=== PATIENT | female | born 1985 | race Caucasian/White ===

== ENCOUNTER 2018-08-01 12:13 | Outpatient (CLI) | payer OTHER ==
[2018-08-01 12:50] LABS: CREATININE 0.7 mg/dL (0.6-1.3)
[2018-08-01] MEDS ORDERED: GADODIAMIDE 5 MMOL/10 ML VIAL IJ ONE (16:34)
== END 2018-08-01 23:59 | disposition home or self-care (01) ==
LOC: MRI 12:13
PROVIDERS: ATTEND Surgery
DX: J32.0 Chronic maxillary sinusitis (principal); R47.81 Slurred speech; R51 Headache
CPT/HCPCS: 36415; 70553; 82565; 84520; A9579

== ENCOUNTER 2019-06-16 19:51 | Emergency (ER) | payer OTHER ==
[~2019-06-16] VITALS: Ht 162.6 cm; Wt 63.5 kg
[2019-06-16 19:55] VITALS: BP 102/66
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
[2019-06-16] MEDS ORDERED: IBUPROFEN 600 MG TABLET PO ONE ×2 (20:36→21:00)
--- NOTE | 2019-06-16 20:44 | NUR ---
PT TAKEN TO RADIOLOGY VIA [facility]
--- NOTE | 2019-06-16 21:03 | NUR ---
PT RETURNED FROM RADIOLOGY FROM [facility]. PT TOLERATED WELL.
--- NOTE | 2019-06-16 21:29 | NUR ---
Patient discharged to home in stable condition. Written and verbal after care instructions given. Patient verbalizes understanding of instruction.
== END 2019-06-16 21:43 | disposition home or self-care (01) ==
LOC: ER 19:52
DX: S20.212A Contusion of left front wall of thorax, initial encounter (principal); R51 Headache; M79.7 Fibromyalgia; V49.49XA Driver injured in collision with other motor vehicles in traffic accident, initial encounter; Y93.89 Activity, other specified; Y92.488 Other paved roadways as the place of occurrence of the external cause; Y99.8 Other external cause status
CPT/HCPCS: 70450-TC; 71100-TC

== ENCOUNTER 2019-08-22 05:06 | Emergency (ER) | payer OTHER ==
[~2019-08-22] VITALS: Ht 162.6 cm; Wt 62.6 kg
--- NOTE | 2019-08-22 05:32 | NUR ---
PATIENT CAME TO ER BED 10 C/O SHORTNESS OF BREATH. PATIENT STATES THAT "IT IS DIFFICULT FOR ME TO TAKE A FULL BREATH OF AIR". AAOX.4 BREATHING EVENLY ON ROOM AIR. CONNECTED TO MONITOR.
--- NOTE | 2019-08-22 05:53 | NUR ---
BLOOD DRAWN AND SENT TO THE LAB
[2019-08-22 05:57] LABS: BASOPHILS # (AUTO) 0.1 /CMM (0.0-0.2); BASOPHILS % (AUTO) 0.9 % (0.0-2.0); HEMATOCRIT 44 % (33-45); HEMOGLOBIN 14.6 g/dL (11.5-14.8); LYMPHOCYTES # (AUTO) 2.4 /CMM (0.8-4.8); LYMPHOCYTES % (AUTO) 40.9 % (20.0-44.0); MEAN CORPUSCULAR HGB CONC 33 g/dl (31.0-36.0); MEAN CORPUSCULAR VOLUME 93 fL (82-100); MONOCYTES # (AUTO) 0.5 /CMM (0.1-1.30); NEUTROPHILS # (AUTO) 2.9 /CMM (1.8-8.9); NEUTROPHILS % (AUTO) 48.2 % (43.0-81.0); PLATELET COUNT (AUTO) 211 /CMM (150-450); RED BLOOD CELL COUNT(AUTO) 4.68 MIL/uL (4.0-5.2); WHITE BLOOD COUNT (AUTO) 5.9 K/uL (4.3-11.0)
[2019-08-22 06:05] LABS: CALCIUM, SERUM 9.4 mg/dL (8.5-10.1); CARBON DIOXIDE 23 mmol/L (21-32); CHLORIDE 103 mmol/L (98-107); CREATININE 0.8 mg/dL (0.6-1.3); GLUCOSE 95 mg/dL (74-106); POTASSIUM 3.6 mmol/L (3.5-5.1); SODIUM SERUM 139 mmol/L (136-145); UREA NITROGEN, BLOOD 14 mg/dL (7-18)
[2019-08-22 06:18] LABS: B-TYPE NATRIURETIC PEPTIDE 78 PG/ML (0-125)
[2019-08-22 07:18] VITALS: BP 112/77
--- NOTE | 2019-08-22 07:18 | NUR ---
IV removed. Catheter intact and site benign. Pressure and 4x4 applied to site. No bleeding noted. Patient discharged to home in stable condition. Written and verbal after care instructions given. Patient verbalizes understanding of instruction.
== END 2019-08-22 07:19 | disposition home or self-care (01) ==
LOC: ER 05:10
DX: J45.909 Unspecified asthma, uncomplicated (principal); J06.9 Acute upper respiratory infection, unspecified; Z88.1 Allergy status to other antibiotic agents; Z20.828 Contact with and (suspected) exposure to other viral communicable diseases
CPT/HCPCS: 36415; 71045-TC; 80048-TC; 83880; 84484-TC; 85025-TC; U0002

== ENCOUNTER 2019-08-29 19:12 | Emergency (ER) | payer OTHER ==
[~2019-08-29] VITALS: Ht 162.6 cm; Wt 63.5 kg
--- NOTE | 2019-08-29 19:38 | NUR ---
weaknes x 1 week with cough x 2 days. REPORTS SHE WAS TESTED FOR COVID PREVIOUSLY BUT THAT WE "LOST THE TEST". DENIES PAIN, SOB. RR EVEN AND UNLABORED ON RA. TO ER BED 5, AWAITING MD ORDERS.
--- NOTE | 2019-08-29 19:49 | NUR ---
XRAY AT BEDSIDE
--- NOTE | 2019-08-29 19:54 | NUR ---
COVID SWAB SENT TO LAB
--- NOTE | 2019-08-29 20:15 | NUR ---
Patient discharged to home in stable condition. Written and verbal after care instructions given. Patient verbalizes understanding of instruction.
[2019-08-29 20:38] VITALS: BP 117/62
== END 2019-08-29 20:15 | disposition home or self-care (01) ==
LOC: ER 19:12
DX: R05 Cough (principal); R53.1 Weakness; Z20.828 Contact with and (suspected) exposure to other viral communicable diseases; Z88.1 Allergy status to other antibiotic agents
CPT/HCPCS: 36415; 71045-TC

== ENCOUNTER 2020-03-05 13:33 | Outpatient (CLI) | payer OTHER | END 2020-03-05 23:59 | disposition home or self-care (01) | LOC: RAD 13:33 | PROVIDERS: ATTEND Surgery | DX: R07.9 Chest pain, unspecified (principal) | CPT/HCPCS: 71046 ==

== ENCOUNTER 2023-07-29 15:32 | Emergency (ER) | payer OTHER ==
[~2023-07-29] VITALS: Ht 162.6 cm; Wt 61.2 kg
[2023-07-29 16:54] LABS: BASOPHILS # (AUTO) 0.2 K/uL (0.0-0.2); BASOPHILS % (AUTO) 1.7 % (0.0-2.0); EOSINOPHILS # (AUTO) 0.1 K/uL (0.0-0.7); EOSINOPHILS % (AUTO) 0.8 % (0.0-6.0); HEMATOCRIT 37 % (33-45); HEMOGLOBIN 12.1 g/dL (11.5-14.8); LYMPHOCYTES # (AUTO) 1.4 K/uL (0.8-4.8); LYMPHOCYTES % (AUTO) 14.5 % (20.0-44.0); MEAN CORPUSCULAR HEMOGLOBIN 30 PG (26.0-33.0); MEAN CORPUSCULAR HGB CONC 33 g/dl (31.0-36.0); MEAN CORPUSCULAR VOLUME 90 fL (82-100); MONOCYTES # (AUTO) 0.5 K/uL (0.1-1.30); MONOCYTES % (AUTO) 5.3 % (2.0-12.0); NEUTROPHILS # (AUTO) 7.3 K/uL (1.8-8.9); NEUTROPHILS % (AUTO) 77.7 % (43.0-81.0); PLATELET COUNT (AUTO) 211 K/uL (150-450); RED CELL DISTRIBUTION WIDTH 14.1 % (11.5-15.0); WHITE BLOOD COUNT (AUTO) 9.4 K/uL (4.3-11.0)
[2023-07-29 16:55] LABS: APPEARANCE,URINE Clear (CLEAR); BILIRUBIN,URINE Negative (NEGATIVE); BLOOD, URINE Trace-intact Ery/uL (NEGATIVE); COLOR,URINE YELLOW (YELLOW); KETONES,URINE Negative (NEGATIVE); LEUKOCYTE ESTERASE ,URINE Negative (NEGATIVE); NITRITE, URINE Negative (NEGATIVE); PH,URINE 5.5 (5.0-8.0); PROTEIN,URINE Negative (NEGATIVE); UGLUCOSE Negative (NEGATIVE); UROBILINOGEN,URINE 0.2 EU/dL (0.2)
[2023-07-29 16:58] LABS: ADD URINE CULTURE NO; BACTERIA,URINE None seen /HPF (None Seen); PREGNANCY TEST URINE QUAL NEGATIVE (NEGATIVE); WBC,URINE 0-2 /HPF (0-3)
[2023-07-29 17:02] LABS: CALCIUM, SERUM 8.7 mg/dL (8.5-10.1); CARBON DIOXIDE 27 mmol/L (21-32); CHLORIDE 104 mmol/L (98-107); CREATININE 0.7 mg/dL (0.6-1.3); GLUCOSE 87 mg/dL (74-106); POTASSIUM 3.8 mmol/L (3.5-5.1); SODIUM SERUM 137 mmol/L (136-145); UREA NITROGEN, BLOOD 14 mg/dL (7-18)
[2023-07-29] MEDS ORDERED: IOHEXOL-300 100 ML VIAL IV ONE (17:03)
[2023-07-29] MEDS ORDERED: IV NS 0.9% 250 ML IV ONE (17:03)
[2023-07-29 17:07] LABS: INR 0.95 (0.91-1.10); PARTIAL THROMBOPLASTIN TIME 27.2 SEC (24.3-34.3); PROTHROMBIN TIME 9.8 SECS (9.2-11.1)
[2023-07-29 17:08] LABS: ALANINE AMINOTRANSFERASE 20 U/L (12-78); ALBUMIN 3.4 g/dL (3.4-5.0); ALKALINE PHOSPHATASE 59 U/L (46-116); ASPARTATE AMINOTRANSFERASE 13 U/L (15-37); BILIRUBIN,DIRECT 0.1 mg/dL (0.0-0.2); BILIRUBIN,TOTAL 0.5 mg/dL (0.2-1.0); LIPASE 52 U/L (16-77)
[2023-07-29 17:34] LABS: EOSINOPHILS % (MANUAL) 1 % (0-4); LYMPHOCYTES % (MANUAL) 13 % (16-48); MONOCYTES % (MANUAL) 6 % (0-11.0); NEUTROPHILS % (MANUAL) 80 (42-76); PLATELET ESTIMATE ADEQUATE
[2023-07-29 18:29] VITALS: TEMP 98.3
[2023-07-29] MEDS ORDERED: AMOX-430 PO (20:08)
[2023-07-29 23:26] VITALS: BP 109/68; O2SAT 100
== END 2023-07-29 23:27 | disposition home or self-care (01) ==
LOC: ER 15:32
DX: K52.9 Noninfective gastroenteritis and colitis, unspecified (principal); R10.31 Right lower quadrant pain; M79.7 Fibromyalgia; Z88.8 Allergy status to other drugs, medicaments and biological substances
CPT/HCPCS: 99285; 74177; 85025; 80048; 87086; 83690; 80076; 84703; 81001; 36415; 84484; 85730; 85007; J7050; Q9967